=== PATIENT | male | born 1980 | race Caucasian/White ===

== ENCOUNTER 2017-02-10 16:32 | Emergency (ER) | payer MEDICAID ==
--- NOTE | 2017-02-10 17:06 | EDPHY ---
General - History Smoking Status: Unknown if ever smoked Narrative: CHIEF COMPLAINT: Suicidal ideation, M1 HISTORY OF PRESENT ILLNESS: Patient presents on an M1 hold from [facility]. The hold documents that he was suicidal with threats of overdosing on fentanyl. This was due to increasing depression from his bipolar disorder. He made these threats online and also called 1 of his friends telling her that he would do this. This friend lives outside of the state but contacted [place] [employer] they performed a welfare check. At that time he admitted to same this things, thus they put him on a hold. He admits to having those thoughts but says that he has no intent of doing so. He says that he does not have access to fit lower weapons. He admits to history of depression with previous suicide attempts by overdose. PSYCHIATRIC DIAGNOSES: Bipolar disorder, major depressive disorder PRIOR PSYCHIATRIC EVALUATIONS: December 2016, [place] M1/DETAINER: [facility] Department, daily examination REVIEW OF SYSTEMS: Ten systems reviewed and are negative unless otherwise noted in the HPI EXAMINATION General Appearance: Alert, no distress Head: normocephalic, atraumatic Eyes: Pupils equal and round, no conjunctival pallor or injection ENT, Mouth: Mucous membranes moist. Airway patent Neck: Normal inspection, supple, non-tender Respiratory: Lungs are clear to auscultation. No wheezing or rhonchi or crackles Cardiovascular: Regular rate and rhythm. No murmur Gastrointestinal: Abdomen is soft and nontender Back: non-tender, no bony abnormalities Neurological: A&O, nonfocal, normal gait. Strength is symmetric. Normal mental status. Skin: Warm and dry, no rash. No lacerations. No cuts to the forearms. Extremities: Nontender, no pedal edema Psychiatric: Depressed mood and flat affect. He is conversational and polite. He is cooperative. Denies any intent but does admit to having suicidal ideation with a previous plan of overdose on fentanyl. DIFFERENTIAL DIAGNOSES: Including but not limited to suicidal ideation, major depression disorder, bipolar disorder, manic episode MDM: 5:00 p.m. Suicidal ideation and a bipolar patient. Plan of taking fentanyl. He says that he has no intent to do so. He has been placed on an M1 hold by [facility] Department. He is very cooperative at this time. Blood in urine been obtained. Laboratory studies pending. 5:40 p.m. Patient is medically cleared at this time. Crisis Center has been contacted for evaluation. 6:40 p.m. Patient re-evaluated. Resting comfortably. Still waiting for evaluation 8:30 p.m. Patient re-evaluated. Resting comfortably. Cooperative. Still awaiting evaluation. 10:00 p.m. Patient is currently being evaluated at this time. (Ilia Laws) Medical Decision Making: Signed out to Melodie 0 with psychiatric evaluation pending. (Roman Huddleston) 0148: Patient has been evaluated by mental health. They feel that this patient benefit from CSU placement. Bed search will begin at this time. 0456AM: Patient accepted at [facility] by Edith FINNEGAN. EMTALA filled out. Appropriate transfer be set up. (Steve Henry) - Objective Vital Signs: Initial Vital Signs Temperature (C) 36.7 C 02/10/17 16:45 Heart Rate 69 02/10/17 16:45 Respiratory Rate 16 02/10/17 16:45 Blood Pressure 146/112 H 02/10/17 16:45 O2 Sat (%) 97 02/10/17 16:45 O2 Delivery Mode Room Air Allergies/Adverse Reactions: cefaclor [From Ceclor] Allergy (Unverified 02/10/17 16:44) Home Medications: Medication Instructions Recorded Unobtainable 02/10/17 Laboratory Results: Laboratory Results 02/10/17 16:55 02/10/17 17:00 02/10/17 02/10/17 02/10/17 17:00 17:00 16:55 WBC 6.61 10^3/uL 10^3/uL (3.80-9.50) RBC 5.29 10^6/uL 10^6/uL (4.40-6.38) Hgb 16.8 g/dL g/dL (13.7-17.5) Hct 46.5 % % (40.0-51.0) MCV 87.9 fL fL (81.5-99.8) MCH 31.8 pg pg (27.9-34.1) MCHC 36.1 g/dL g/dL (32.4-36.7) RDW 12.3 % % (11.5-15.2) Plt Count 242 10^3/uL 10^3/uL (150-400) MPV 10.0 fL fL (8.7-11.7) Neut % (Auto) 63.6 % % (39.3-74.2) Lymph % (Auto) 24.5 % % (15.0-45.0) [place] % (Auto) 7.0 % % (4.5-13.0) Eos % (Auto) 2.9 % % (0.6-7.6) Baso % (Auto) 1.5 % % (0.3-1.7) Nucleat RBC Rel Count 0.0 % % (0.0-0.2) Absolute Neuts (auto) 4.21 10^3/uL 10^3/uL (1.70-6.50) Absolute Lymphs (auto) 1.62 10^3/uL 10^3/uL (1.00-3.00) Absolute Monos (auto) 0.46 10^3/uL 10^3/uL (0.30-0.80) Absolute Eos (auto) 0.19 10^3/uL 10^3/uL (0.03-0.40) Absolute Basos (auto) 0.10 10^3/uL 10^3/uL (0.02-0.10) Absolute Nucleated RBC 0.00 10^3/uL 10^3/uL (0-0.01) Immature Gran % 0.5 % % (0.0-1.1) Immature Gran # 0.03 10^3/uL 10^3/uL (0.00-0.10) Sodium 140 mEq/L mEq/L (134-144) Potassium 4.4 mEq/L mEq/L (3.5-5.2) Chloride 107 mEq/L mEq/L (97-110) Carbon Dioxide 21 mEq/l L mEq/l (22-31) Anion Gap 12 mEq/L mEq/L (8-16) BUN 18 mg/dL mg/dL (7-23) Creatinine 1.0 mg/dL mg/dL (0.7-1.3) Estimated GFR > 60 Glucose 89 mg/dL mg/dL (70-100) Calcium 9.5 mg/dL mg/dL (8.5-10.4) Salicylates < 1.0 mg/dL L mg/dL (2.0-20.0) Urine Opiates Screen NEGATIVE (NEGATIVE) Acetaminophen < 10 mcg/mL L mcg/mL (10-30) Urine Barbiturates NEGATIVE (NEGATIVE) Carbamazepine 3.1 ug/mL L ug/mL (4.0-12.0) Ur Phencyclidine Scrn NEGATIVE (NEGATIVE) Ur Amphetamine Screen NEGATIVE (NEGATIVE) U Benzodiazepines Scrn NEGATIVE (NEGATIVE) Urine Cocaine Screen NEGATIVE (NEGATIVE) U Marijuana (THC) Screen NEGATIVE (NEGATIVE) Ethyl Alcohol < 10 mg/dL mg/dL (0-10) Departure - Departure Disposition: Acute Care Hospital [facility] Clinical Impression: Bipolar 1 disorder, Severe major depression Condition: Good Referrals: NONE *PRIMARY CARE P,. [Primary Care Provider] - As per Instructions
--- NOTE | 2017-02-10 17:06 | EDPHY ---
General - History Smoking Status: Unknown if ever smoked Narrative: CHIEF COMPLAINT: Suicidal ideation, M1 HISTORY OF PRESENT ILLNESS: Patient presents on an M1 hold from [facility]. The hold documents that he was suicidal with threats of overdosing on fentanyl. This was due to increasing depression from his bipolar disorder. He made these threats online and also called 1 of his friends telling her that he would do this. This friend lives outside of the state but contacted [place] [employer] they performed a welfare check. At that time he admitted to same this things, thus they put him on a hold. He admits to having those thoughts but says that he has no intent of doing so. He says that he does not have access to fit lower weapons. He admits to history of depression with previous suicide attempts by overdose. PSYCHIATRIC DIAGNOSES: Bipolar disorder, major depressive disorder PRIOR PSYCHIATRIC EVALUATIONS: December 2016, [facility] M1/DETAINER: [facility] Department, daily examination REVIEW OF SYSTEMS: Ten systems reviewed and are negative unless otherwise noted in the HPI EXAMINATION General Appearance: Alert, no distress Head: normocephalic, atraumatic Eyes: Pupils equal and round, no conjunctival pallor or injection ENT, Mouth: Mucous membranes moist. Airway patent Neck: Normal inspection, supple, non-tender Respiratory: Lungs are clear to auscultation. No wheezing or rhonchi or crackles Cardiovascular: Regular rate and rhythm. No murmur Gastrointestinal: Abdomen is soft and nontender Back: non-tender, no bony abnormalities Neurological: A&O, nonfocal, normal gait. Strength is symmetric. Normal mental status. Skin: Warm and dry, no rash. No lacerations. No cuts to the forearms. Extremities: Nontender, no pedal edema Psychiatric: Depressed mood and flat affect. He is conversational and polite. He is cooperative. Denies any intent but does admit to having suicidal ideation with a previous plan of overdose on fentanyl. DIFFERENTIAL DIAGNOSES: Including but not limited to suicidal ideation, major depression disorder, bipolar disorder, manic episode MDM: 5:00 p.m. Suicidal ideation and a bipolar patient. Plan of taking fentanyl. He says that he has no intent to do so. He has been placed on an M1 hold by [facility] Department. He is very cooperative at this time. Blood in urine been obtained. Laboratory studies pending. 5:40 p.m. Patient is medically cleared at this time. Crisis Center has been contacted for evaluation. 6:40 p.m. Patient re-evaluated. Resting comfortably. Still waiting for evaluation 8:30 p.m. Patient re-evaluated. Resting comfortably. Cooperative. Still awaiting evaluation. 10:00 p.m. Patient is currently being evaluated at this time. (Ilia Laws) Medical Decision Making: Signed out to Melodie 0 with psychiatric evaluation pending. (Roman Huddleston) 0148: Patient has been evaluated by mental health. They feel that this patient benefit from CSU placement. Bed search will begin at this time. 0456AM: Patient accepted at [facility] by Edith FINNEGAN. EMTALA filled out. Appropriate transfer be set up. (Steve Henry) - Objective Vital Signs: Initial Vital Signs Temperature (C) 36.7 C 02/10/17 16:45 Heart Rate 69 02/10/17 16:45 Respiratory Rate 16 02/10/17 16:45 Blood Pressure 146/112 H 02/10/17 16:45 O2 Sat (%) 97 02/10/17 16:45 O2 Delivery Mode Room Air Allergies/Adverse Reactions: cefaclor [From Ceclor] Allergy (Unverified 02/10/17 16:44) Home Medications: Medication Instructions Recorded Unobtainable 02/10/17 Laboratory Results: Laboratory Results 02/10/17 16:55 02/10/17 17:00 02/10/17 02/10/17 02/10/17 17:00 17:00 16:55 WBC 6.61 10^3/uL 10^3/uL (3.80-9.50) RBC 5.29 10^6/uL 10^6/uL (4.40-6.38) Hgb 16.8 g/dL g/dL (13.7-17.5) Hct 46.5 % % (40.0-51.0) MCV 87.9 fL fL (81.5-99.8) MCH 31.8 pg pg (27.9-34.1) MCHC 36.1 g/dL g/dL (32.4-36.7) RDW 12.3 % % (11.5-15.2) Plt Count 242 10^3/uL 10^3/uL (150-400) MPV 10.0 fL fL (8.7-11.7) Neut % (Auto) 63.6 % % (39.3-74.2) Lymph % (Auto) 24.5 % % (15.0-45.0) [place] % (Auto) 7.0 % % (4.5-13.0) Eos % (Auto) 2.9 % % (0.6-7.6) Baso % (Auto) 1.5 % % (0.3-1.7) Nucleat RBC Rel Count 0.0 % % (0.0-0.2) Absolute Neuts (auto) 4.21 10^3/uL 10^3/uL (1.70-6.50) Absolute Lymphs (auto) 1.62 10^3/uL 10^3/uL (1.00-3.00) Absolute Monos (auto) 0.46 10^3/uL 10^3/uL (0.30-0.80) Absolute Eos (auto) 0.19 10^3/uL 10^3/uL (0.03-0.40) Absolute Basos (auto) 0.10 10^3/uL 10^3/uL (0.02-0.10) Absolute Nucleated RBC 0.00 10^3/uL 10^3/uL (0-0.01) Immature Gran % 0.5 % % (0.0-1.1) Immature Gran # 0.03 10^3/uL 10^3/uL (0.00-0.10) Sodium 140 mEq/L mEq/L (134-144) Potassium 4.4 mEq/L mEq/L (3.5-5.2) Chloride 107 mEq/L mEq/L (97-110) Carbon Dioxide 21 mEq/l L mEq/l (22-31) Anion Gap 12 mEq/L mEq/L (8-16) BUN 18 mg/dL mg/dL (7-23) Creatinine 1.0 mg/dL mg/dL (0.7-1.3) Estimated GFR > 60 Glucose 89 mg/dL mg/dL (70-100) Calcium 9.5 mg/dL mg/dL (8.5-10.4) Salicylates < 1.0 mg/dL L mg/dL (2.0-20.0) Urine Opiates Screen NEGATIVE (NEGATIVE) Acetaminophen < 10 mcg/mL L mcg/mL (10-30) Urine Barbiturates NEGATIVE (NEGATIVE) Carbamazepine 3.1 ug/mL L ug/mL (4.0-12.0) Ur Phencyclidine Scrn NEGATIVE (NEGATIVE) Ur Amphetamine Screen NEGATIVE (NEGATIVE) U Benzodiazepines Scrn NEGATIVE (NEGATIVE) Urine Cocaine Screen NEGATIVE (NEGATIVE) U Marijuana (THC) Screen NEGATIVE (NEGATIVE) Ethyl Alcohol < 10 mg/dL mg/dL (0-10) Departure - Departure Disposition: Acute Care Hospital [facility] Clinical Impression: Bipolar 1 disorder, Severe major depression Condition: Good Referrals: NONE *PRIMARY CARE P,. [Primary Care Provider] - As per Instructions
[2017-02-10 17:12] LABS: PLATELET COUNT 242 10^3/uL (150-400)
[2017-02-11 00:17] VITALS: O2SAT 95
[2017-02-11 06:02] VITALS: BP 100/73; PULSE 69; RESP 14; TEMP 97.5
== END 2017-02-11 06:55 | disposition short-term general hospital (02) ==
DX: F31.4 Bipolar disorder, current episode depressed, severe, without psychotic features (principal)
CPT/HCPCS: 80305; G0480